=== PATIENT | male | born 1940 | race Native Hawaiian/Other Pacific Islander ===

== ENCOUNTER 2016-11-18 14:54 | Emergency (ER) | payer MEDICARE ==
[2016-11-18 14:55] VITALS: BMI 28.8
--- NOTE | 2016-11-18 15:41 | ED PDOC ---
Arrival/HPI - General Historian: Patient - History of Present Illness Time/Duration: Prior to Arrival Symptom Onset: Sudden Activities at Onset: Rest Context: Home - General Chief Complaint: Abnormal Labs Time Seen by Provider: 11/18/16 15:13 - History of Present Illness Narrative History of Present Illness (Text): 11/18/16 15:38 76 year old male with past medical history of CAD s/p CABg and stents, NIDDM, HTN and stage III CKD (in 2015) presents for hyperkalemia. Patient had blood work done today at PMD, Dr. Matta's office and he was called by office. patient was told to come to ED. Patient denies having any CP, SOB, abd pain, N/V/D/C, dysuria, palpitations. Patient was admitted to hospital for hyperkalemia and acute on chronic kidney disease in 2014. PMD: [employer]: Julieta Beltran) Past Medical History - Provider Review Nursing Documentation Reviewed: Yes - Travel History Have you recently traveled outside [place] w/in the past 3 mons?: No - Tetanus Immunization Tetanus Immunization: Unknown - Cardiac Hx Hypertension: Yes - Endocrine/Metabolic Hx Diabetes Mellitus Type 2: Yes - Psychiatric Hx Substance Use: No - Surgical History Hx Cardiac Catheterization: Yes Hx Coronary Artery Bypass Graft: Yes (tripple) Hx Coronary Stent: Yes (x4) - Anesthesia Hx Anesthesia: Yes Hx Anesthesia Reactions: No Hx Malignant Hyperthermia: No - Suicidal Assessment Feels Threatened In Home Enviroment: No Family/Social History - Physician Review Nursing Documentation Reviewed: Yes Family/Social History: Unknown Family HX Smoking Status: Never Smoked Hx Alcohol Use: No Hx Substance Use: No Hx Substance Use Treatment: No Allergies/Home Meds Allergies/Adverse Reactions: Allergies No Known Allergies Allergy (Verified 06/26/14 09:54) Home Medications: Home Meds Medication Instructions Recorded Confirmed Aspirin [Aspirin EC] 325 mg PO DAILY 11/18/16 11/18/16 Clopidogrel [Plavix] 75 mg PO DAILY 11/18/16 11/18/16 Escitalopram [Lexapro] 10 mg PO DAILY 11/18/16 11/18/16 Isosorbide Mononitrate [Isosorbide 60 mg PO DAILY 11/18/16 11/18/16 Mononitrate ER] Metoprolol Succinate [Toprol XL] 50 mg PO DAILY 11/18/16 11/18/16 Pravastatin Sodium [Pravachol] 40 mg PO DAILY 11/18/16 11/18/16 Sitagliptin Phos/Metformin HCl 1 each PO BID 11/18/16 11/18/16 [Janumet 50-1,000 mg Tablet] amLODIPine [Norvasc] 2.5 mg PO DAILY 11/18/16 11/18/16 Review of Systems - Review of Systems Constitutional: Normal. absent: Fatigue, Fevers Eyes: Normal. absent: Vision Changes, Photophobia ENT: Normal. absent: TMJ Pain, Sore Throat, Rhinorrhea Respiratory: Normal. absent: SOB, Cough, Sputum, Wheezing Cardiovascular: Normal. absent: Chest Pain, Palpitations, Edema, Calf Pain Gastrointestinal: Normal. absent: Abdominal Pain, Constipation, Diarrhea Genitourinary Male: Normal. absent: Dysuria, Frequency, Hematuria Musculoskeletal: Normal. absent: Arthralgias, Back Pain, Neck Pain Skin: Normal. absent: Rash, Pruritis, Skin Lesions, Laceration Neurological: Normal. absent: Headache, Dizziness Hemo/Lymphatic: Normal. absent: Adenopathy, Easy Bleeding Psychiatric: Normal. absent: Anxiety, Depression Physical Exam Vital Signs Reviewed: Yes Temperature: Afebrile Blood Pressure: Normal Pulse: Regular Respiratory Rate: Normal Appearance: Positive for: Well-Appearing, Non-Toxic, Comfortable Pain Distress: None Mental Status: Positive for: Alert and Oriented X 3 - Systems Exam Head: Present: Atraumatic, Normocephalic Pupils: Present: PERRL Extroacular Muscles: Present: EOMI Conjunctiva: Present: Normal Mouth: Present: Moist Mucous Membranes Neck: Present: Normal Range of Motion Respiratory/Chest: Present: Clear to Auscultation, Good Air Exchange. No: Respiratory Distress, Accessory Muscle Use Cardiovascular: Present: Regular Rate and Rhythm, Normal S1, S2. No: Murmurs Abdomen: Present: Normal Bowel Sounds. No: Tenderness, Distention, Peritoneal Signs, Rebound, Guarding Upper Extremity: Present: Normal Inspection, Normal ROM, NORMAL PULSES. No: Cyanosis, Edema Lower Extremity: Present: Normal Inspection, NORMAL PULSES. No: Edema, CALF TENDERNESS Neurological: Present: GCS=15, CN II-XII Intact, Speech Normal Skin: Present: Warm, Dry, Normal Color. No: Rashes Psychiatric: Present: Alert, Oriented x 3, Normal Insight, Normal Concentration Vital Signs Temp Pulse Resp BP Pulse Ox 11/18/16 16:08 97.9 F 72 16 94/63 L 98 11/18/16 14:59 97.9 F 77 16 110/69 97 Medical Decision Making - EKG Interpretation Interpreted by ED Physician: Yes Type: 12 lead EKG ED Course and Treatment: 11/18/16 15:49 EKG: Ordered, reviewed, and independently interpreted the EKG. Rate : 74 BPM Rhythm : NSR Interpretation : LVH and T-wave inversion and lateral LAD Q-waves in inferior leads. 11/18/16 17:24 Patient seen and examined with resident. Came up with treatment and disposition plan with resident. (Justen Alas) 11/18/16 15:42 76 y/o M presents for hyperkalemia likely due to CKD. Patient's home medications are studied and he is currently not on any medication that can lead to significant hyperkalemia Will check: CBC, BMP, EKG 11/18/16 17:24 Patient is told to follow up with executive assistant to president, Dr. Vickers upon discharge. (Julieta Boss) - Lab Interpretations Narrative Lab Interpretation (Text): 11/18/16 17:25 K=5.9 Cr=2.1 GFR=31 (still stage III). Baseline Cr is 1.5. (Julieta Boss) Lab Results: 11/18/16 16:00 11/18/16 16:00 Lab Results 11/18/16 16:00: Sodium 142, Potassium 5.9 H*, Chloride 110 H, Carbon Dioxide 22 , Anion Gap 16, BUN 42 H, Creatinine 2.1 H, Est GFR ( Amer) 37, Est GFR ( Non-Af Amer) 31, Random Glucose 113 H, Calcium 9.5 11/18/16 16:00: WBC 5.7, RBC 4.02, Hgb 12.1 L, Hct 35.4 L, MCV 88.1, MCH 30.1, MCHC 34.2, RDW 14.4, Plt Count 133, MPV 10.6 - EKG Interpretation EKG Interpretation (Text): 11/18/16 15:44 NSR HR 74. No St changes, normal axis and normal interval (Karim,Julieta) - Medication Orders Current Medication Orders: Sodium Chloride (Sodium Chloride 0.9%) 1,000 mls @ 999 mls/hr IV .Q1H1M RACHAEL Last Admin: 11/18/16 17:15 Dose: 999 mls/hr Discontinued Medications Sodium Polystyrene Sulfonate (Kayexalate Oral Susp) 30 gm PO STAT STA Stop: 11/18/16 16:32 Last Admin: 11/18/16 17:11 Dose: 30 gm Disposition/Present on Arrival - Present on Arrival Any Indicators Present on Arrival: No History of DVT/PE: No History of Uncontrolled Diabetes: No Urinary Catheter: No History of Decub. Ulcer: No History Surgical Site Infection Following: None - Disposition Have Diagnosis and Disposition been Completed?: Yes Disposition Time: 16:34 Patient Plan: Discharge - Disposition Diagnosis: Hyperkalemia, CKD (chronic kidney disease) Disposition: HOME/ ROUTINE Patient Problems: Current Active Problems Problem Status Onset CKD (chronic kidney disease) Acute Hyperkalemia Acute Condition: GOOD Additional Instructions: Mariely Mast, thank you for letting us take care of you today. Your provider was Dr. Julieta Boss. You were treated for hyperkalemia. The emergency medical care you received today was directed at your acute symptoms. If you were prescribed any medication, please fill it and take as directed. It may take several days for your symptoms to resolve. Return to the Emergency Department if your symptoms worsen, do not improve, or if you have any other problems. Please contact your doctor or call one of the physicians/clinics you have been referred to that are listed on the Patient Visit Information form that is included in your discharge packet. Bring any paperwork you were given at discharge with you along with any medications you are taking to your follow up visit. Our treatment cannot replace ongoing medical care by a primary care provider (PCP) outside of the emergency department. Thank you for allowing the [facility] team to be part of your care today. If you had an X-Ray or CT scan: A Radiologist will review the ED reading if any change in treatment is needed we will contact you. If you had a blood, urine, or wound culture: It will take several days for the results, if any change in treatment is needed we will contact you. If you had an STI test: It will take 48 hours for the results. Please call after 1 week if you have not heard back. Prescriptions: Sodium Polystyrene Sulfonate [kayeXALATE Oral Susp] 15 gm PO DAILY #1 bottle Referrals: Kathryn Vickers MD [Staff Provider] - Follow up with primary Forms: [employer] (Czech)
[2016-11-18 16:17] LABS: HEMOGLOBIN 12.1 g/dL (14.0-18.0); MEAN CELL VOLUME 88.1 fl (80.0-105.0); MEAN CORPUSCULAR HEMOGLOBIN 30.1 pg (25.0-35.0); MEAN CORPUSCULAR HGB CONC 34.2 g/dl (31.0-37.0); MEAN PLATELET VOLUME 10.6 fl (7.0-11.0); RBC 4.02 10^6/uL (3.5-6.1); RED CELL DISTRIBUTION WIDTH 14.4 % (11.5-14.5); WHITE BLOOD COUNT 5.7 10^3/ul (4.5-11.0)
[2016-11-18 16:27] LABS: CALCIUM 9.5 mg/dL (8.4-10.5)
[2016-11-18] MEDS ORDERED: Sod Polystyrene Sulf 15 gm/60 ml Oral Susp PO STA (16:31)
[2016-11-18] MEDS ORDERED: Sodium Chloride 0.9% 1,000 ML IV SCH (16:31)
[2016-11-18 18:11] VITALS: BP 111/79; TEMP 97.8
[2016-11-18 18:59] VITALS: PULSE 88; RESP 16; O2SAT 98
--- NOTE | 2016-11-19 23:53 | CARD ---
APPROVED REPORT EKG Measurement Heart [id number] <Conclusion> Normal sinus rhythm Possible Left atrial enlargement Left axis deviation Left ventricular hypertrophy with repolarization abnormality Inferior infarct, age undetermined Abnormal ECG
== END 2016-11-18 18:59 | disposition home or self-care (01) ==
LOC: ED 14:54
DX: E87.5 Hyperkalemia (principal); I12.9 Hypertensive chronic kidney disease with stage 1 through stage 4 chronic kidney disease, or unspecified chronic kidney disease; N18.3 Chronic kidney disease, stage 3 (moderate)